=== PATIENT | male | born 1960 | race Hispanic/Latino ===

== ENCOUNTER → 2018-08-26 | Day surgery (SDC) | payer OTHER ==
[~2018-08-26] MED LIST: ASPIR 8181 MG PO; FENTANYL CITRATE/PF 100MCG/2 ML INJ ONE; FISH OIL 1,0001 EAC2 PO; GLYCOPYRROLATE INJ 1MG/ 5 ML SYR ONE; KETAMINE HCL INJ 50 MG/ML 10 ML VIAL ONE; LOSARTAN-HCTZ1 EAC2 PO; METFORMIN HCL500 MG PO; MIDAZOLAM HCL 2 MG/2 ML VIAL ONE; OSTEO BI-FLEX1 EAC2 PO; PROPOFOL IV EMULSION 10 MG/ML 50 ML VIAL ONE
[2018-08-26 12:50] VITALS: BP 120/83
--- NOTE | 2018-08-26 19:05 | Operative Report ---
DATE OF PROCEDURE: 08/26/2018 SURGEON: Marques Vega MD PROCEDURE: Colonoscopy and polypectomy. REFERRING PHYSICIAN: Dr. Dona Ferrer INDICATIONS FOR COLONOSCOPY: Surveillance colonoscopy, personal history of colon polyps. MEDICATION: The patient was done under MAC, please see anesthesiologist's note. PROCEDURE IN DETAIL: With the patient in left lateral decubitus position, flexible fiberoptic Olympus colonoscope was inserted into the rectum with ease and advanced all the way to the cecum. Multiple polyps were noted in the cecum. Approximately three were snared and four polyps were hot biopsied. One polypectomy site was hemoclipped. The scope was then withdrawn slowly and a single diverticulum was noted in the ascending colon. The transverse appeared to be within normal limits. One polyp was snared from the descending colon. The sigmoid appeared to be within normal limits. Three polyps were hot biopsied from the rectum. The scope was then retroflexed until the distal rectum and small internal hemorrhoids were noted, none of which was actively bleeding. The scope was then straightened out and was subsequently withdrawn. The patient tolerated the procedure well. IMPRESSION: 1. Cecal polyps x7, three snared and four hot biopsied, one polypectomy site hemoclipped. 2. Single diverticulum, ascending colon. 3. Descending colon polyp snared. 4. Rectal polyps x3, hot biopsied. 5. Internal hemorrhoids, none actively bleeding. A total of 11 polyps were removed. PLAN: Follow up histology. Initiate high-fiber, low-fat diet. Initiate high-fiber supplement. The patient might benefit from a followup colonoscopy in two years. Marques Vega [place] [facility] [place] /[id number] cc: Dr. Dona Ferrer
== END | disposition home or self-care (01) ==
LOC: OR 09:30
PROVIDERS: ATTEND Internal Medicine Gastroenterology
DX: Z09 Encounter for follow-up examination after completed treatment for conditions other than malignant neoplasm (principal); D12.4 Benign neoplasm of descending colon; K62.1 Rectal polyp; K57.30 Diverticulosis of large intestine without perforation or abscess without bleeding; K64.8 Other hemorrhoids; I10 Essential (primary) hypertension; E11.9 Type 2 diabetes mellitus without complications; Z79.82 Long term (current) use of aspirin; Z79.84 Long term (current) use of oral hypoglycemic drugs
CPT/HCPCS: 36415; 45384; 45385; 82948; J2250; J2704; J3490